=== PATIENT | male | born 1985 | race Caucasian/White ===

== ENCOUNTER 2016-05-16 16:13 | Emergency (ER) | payer SELFPAY ==
[~2016-05-16] VITALS: Ht 175.3 cm; Wt 113.4 kg
[~2016-05-16 16:13] MED LIST: ACET-2267 PO; ACHD5005 PO; ALPR2TAB; ALPR2TAB2; ALPR2TAB2 PO; AZIT500T PO; BENZ100C8 PO; CLIN150C17 PO; CLIN300C11 PO; CLON1TAB36 PO; CYCL5TAB11; DICY20TA57 PO; DOXY100T61 PO; FAMO20TA5 PO; HDR4T PO; HYDR-3812 PO; HYDR1TAB PO; HYDR25CA5 PO; HYDR8TAB24; IBP800T PO; IBUP200C11 PO; METO10TA3 PO; NAPR500T3 PO; ONDA4TAB8 PO; ONDA8TAB13 PO; OXYC-12; OXYC-12 PO; OXYC30TA22; OXYC30TA22 PO; PRD10T PO; PRD20T; PREG75CA PO; SRTR100T; SRTR100T PO; fentanyl patch
--- NOTE | 2016-05-16 16:26 | ED EENT ---
History of Present Illness General Stated Complaint: EAR PAIN Source: patient Exam Limitations: no limitations History of Present Illness Time seen by provider: 16:22 Initial Comments To ER with difficulty hearing and itchy ears bilaterally. This began a few days ago when he was started on antibiotic. He reported some improvement but then worsening again this morning. No fevers or chills. Timing/Duration: gradual Severity: moderate Location: ear (R), ear (L) Associated Symptoms: denies symptoms Allergies and Home Medications Allergies Coded Allergies: Penicillins (Unverified Allergy, Severe, HIVES, 08/22/08) Home Medications Acetaminophen 500 Mg Tablet 1,000 MG PO Q6H PRN PRN PAIN (Reported) TAKES 2 (500MG) TABLETS Clindamycin HCl 150 Mg Capsule 10Days 300 MG PO QID (Reported) #80 FILLED 02-05-15 Hydrocodone/Acetaminophen 1 Each Tablet #30 1 TAB PO Q4H PRN PRN PAIN Prescribed by: MASOUD BENAVIDEZ on 02/08/15 111 Naproxen 500 Mg Tablet #20 500 MG PO BID Prescribed by: MASOUD BENAVIDEZ on 02/08/15 1114 Review of Systems Constitutional: see HPI Eyes: No Symptoms Reported Ears: See HPIDenies Dizziness, PainDenies Tinnitus, Denies Bloody Discharge, Denies Clear Discharge, Denies Purulent Discharge Nose: no symptoms reported Mouth: no symptoms reported Throat: no symptoms reported Respiratory: no symptoms reported Cardiovascular: no symptoms reported Musculoskeletal: no symptoms reported Neurological: No Symptoms Reported Hematologic/Lymphatic: No Symptoms Reported Past Bxirwqc-Rvwyvw-Kuinmt Hx Patient Social History Former Smoker/When Quit: Recent Foreign Travel: No Contact w/Someone Who Travel: No Immunizations Up To Date Tetanus Booster (TDap): More than 5yrs Surgeries HX Surgeries: Yes (LEFT ACL REPAIR X 2, LEFT 5TH TOE SURGERY, MULTIPLE I&D'S OF ABSCESSES.) Surgeries: Adenoidectomy, Appendectomy, Ear Surgery, Orthopedic, Tonsillectomy Respiratory Hx Respiratory Disorders: No Cardiovascular Hx Cardiac Disorders: Yes Neurological Hx Neurological Disorders: Yes Reproductive System Hx Reproductive Disorders: No Genitourinary Hx Genitourinary Disorders: No Gastrointestinal Hx Gastrointestinal Disorders: No Gastrointestinal Disorders: Chronic Constipation, Chronic Diarrhea Musculoskeletal Hx 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 ) Endocrine Hx Endocrine Disorders: No HEENT HX ENT Disorders: No Loss of Vision: Denies Hearing Impairment: Denies Cancer Hx Cancer: No Psychosocial Hx Psychiatric Problems: Yes (SUICIDAL THOUGHTS/GESTURES IN PAST--"CUTTER") Behavioral Health Disorders: Anxiety, Suicide Attempts, Bipolar, Depression Integumentary HX Skin/Integumentary Disorder: Yes (MRSA ABSCESSES) Blood Transfusions Hx Blood Disorders: No Family Medical History Significant Family History: Heart Disease Physical Exam General Appearance: WD/WN no apparent distress Eyes: bilateral eye EOMI, bilateral eye PERRL, bilateral eye normal inspection Ears: bilateral ear auricle normal, bilateral ear canal normal, bilateral ear other (tympanic membrane unable to be visualized on either side due to cerumen impaction) Mouth/Throat: normal mouth inspection pharynx normal Neck: non-tender full range of motion Respiratory: no respiratory distress no accessory muscle use Gastrointestinal: normal bowel sounds non tender soft Neurologic/Psychiatric: alert normal mood/affect oriented x 3 Skin: normal color warm/dry Laceration Repair : Suture Size: 4-0 Departure Impression Impression: Primary Impression: Impacted cerumen of both ears Disposition: 01 HOME, SELF-CARE Condition: Stable Departure-Patient Inst. Decision time for Depature: 16:23 Referrals: NO,LOCAL PHYSICIAN (PCP) Primary Care Physician ANNE-MARIE CHATTERJEE MD Patient Instructions: Ear Wax Impaction (DC) Add. Discharge Instructions: 1. Return to ER for any concerns 2. Follow-up with your doctor next week or Dr. Chatterjee 3. Use mineral oil 4 drops to each ear. You can buy this at [employer] or [place]. Lay on your left side and put 4 drops in the right ear and lay in that position for 15 minutes. Then lay on your right side and put 4 drops in the left ear and remained in that position for 15 minutes. PINA MEDINA APRN May 16, 2016 16:26
[2016-05-16 16:34] VITALS: BP 142/92
== END 2016-05-16 16:34 | disposition home or self-care (01) ==
LOC: EDUNIT# 16:13 → ER 16:15
DX: H61.21 Impacted cerumen, right ear (principal); H61.22 Impacted cerumen, left ear
CPT/HCPCS: 99282

== ENCOUNTER 2016-10-17 17:10 | Emergency (ER) | payer SELFPAY ==
[~2016-10-17] VITALS: Ht 172.7 cm; Wt 113.4 kg
[2016-10-17] MEDS ORDERED: CLON1TAB3 PO (17:48)
[2016-10-17] MEDS ORDERED: SERT100T PO (17:48)
[2016-10-17] MEDS ORDERED: PANT40TA2 PO (17:48)
[2016-10-17] MEDS ORDERED: NS IV 1000 ML 1,000 ML IV ONE (18:36)
--- NOTE | 2016-10-17 18:36 | ED Abdominal Pain ---
General Chief Complaint: Abdominal/GI Problems Stated Complaint: RUQ ABD PAIN Nursing Triage Note: Pt c/o RUQ abd pain that started 2 days ago. Pt also c/o swelling in bilat armpits and lymph nodes under neck. Pt also c/o nausea and vomiting and states he has been more tired than normal. Sepsis Screen: No Definite Risk Source of Information: Patient, RN Notes Reviewed Exam Limitations: No Limitations History of Present Illness Time Seen By Provider: 18:29 Initial Comments Patient presents c/ c/o RUQ abdominal pain for the last 2 days that has steadily gotten worse. Currently rates it a 7/10, sharp, and constant. (+) radiation toward right scapula. (+) nausea and fatigue. Has had similar spells in past but they never lasted this long or got this bad. Not aware of any fever. No diarrhea, or constipation. Denies any symptoms either. Is currently on Protonix. Timing/Duration: 1-2 Days Severity/Quality: Moderate (7/10), Sharp Location: RUQ Radiation: Back (right scapula area) Activities at Onset: None Modifying Factors: Improves With Other (nothing ) Associated Symptoms: Denies Symptoms Allergies and Home Medications Allergies Coded Allergies: Penicillins (Unverified Allergy, Severe, HIVES, 08/22/08) Home Medications Clonazepam 1 Mg Tablet, 1 MG PO BID PRN for ANXIETY, (Reported) Ondansetron HCl 4 Mg Tab, 4 MG PO Q6H PRN for NAUSEA/VOMITING, #10 Ref 0 Prescribed by: DANIEL WHEELER on 10/17/161954 Pantoprazole Sodium Unknown Strength Tablet.dr, Unknown Dose PO DAILY, (Reported ) Sertraline HCl 100 Mg Tablet, 100 MG PO HS, (Reported) Sucralfate 1 Gm Tablet, 1 GM PO ACHS for 15 Days, #60 Ref 0 Prescribed by: DANIEL WHEELER on 10/17/161954 Tramadol HCl 50 Mg Tablet, 50-100 MG PO Q6H PRN for ABDOMINAL PAIN, #20 Ref 0 Prescribed by: DANIEL WHEELER on 10/17/161954 Review of Systems Constitutional: see HPI Gastrointestinal: See HPI, Abdominal Pain, Nausea All Other Systems Reviewed Negative Unless Noted: Yes (Negative excepted noted.) Past Fslamjs-Btwydd-Pqzpqp Hx Patient Social History Alcohol Use: Rarely Uses Recreational Drug Use: No Smoking Status: Former Smoker Recent Foreign Travel: No Contact w/Someone Who Travel: No Recent Infectious Disease Expo: No Recent Hopitalizations: No Immunizations Up To Date Tetanus Booster (TDap): More than 5yrs Surgeries HX Surgeries: Yes (LEFT ACL REPAIR X 2, LEFT 5TH TOE SURGERY, MULTIPLE I&D'S OF ABSCESSES.) Surgeries: Adenoidectomy, Appendectomy, Ear Surgery, Orthopedic, Tonsillectomy Respiratory Hx Respiratory Disorders: No Cardiovascular Hx Cardiac Disorders: Yes Neurological Hx Neurological Disorders: Yes Reproductive System Hx Reproductive Disorders: No Genitourinary Hx Genitourinary Disorders: No Gastrointestinal Hx Gastrointestinal Disorders: No Gastrointestinal Disorders: Chronic Constipation, Chronic Diarrhea Musculoskeletal Hx 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 ) Endocrine Hx Endocrine Disorders: No HEENT HX ENT Disorders: No Loss of Vision: Denies Hearing Impairment: Denies Cancer Hx Cancer: No Psychosocial Hx Psychiatric Problems: Yes (SUICIDAL THOUGHTS/GESTURES IN PAST--"CUTTER") Behavioral Health Disorders: Anxiety, Suicide Attempts, Bipolar, Depression Integumentary HX Skin/Integumentary Disorder: Yes (MRSA ABSCESSES) Blood Transfusions Hx Blood Disorders: No Family Medical History Significant Family History: Heart Disease Physical Exam Vital Signs VS - Last 72 Hours, by Label 10/17/16 10/17/16 17:44 20:04 Temp 98.0 Pulse 122 78 Resp 18 18 B/P (MAP) 136/97 Pulse Ox 96 98 O2 Delivery Room Air Room Air Capillary Refill : Less Than 3 Seconds General Appearance: WD/WN, moderate distress, obese HEENT: normal ENT inspection Neck: normal inspection Respiratory: no respiratory distress Cardiovascular: tachycardia Gastrointestinal: guarding (RUQ), No rebound, tenderness (RUQ) Rectal: deferred Back: no CVA tenderness Neurologic/Psychiatric: no motor/sensory deficits, alert, oriented x 3 Skin: warm/dry, No rash Laceration Repair : Suture Size: 4-0 Progress/Results/Core Measures Results/Orders Lab Results Laboratory Tests Test 10/17/16 19:00 Range/Units White Blood Count 8.1 4.3-11.0 10^3/uL Red Blood Count 4.79 4.35-5.85 10^6/uL Hemoglobin 14.5 13.3-17.7 G/DL Hematocrit 41 40-54 % Mean Corpuscular Volume 86 80-99 FL Mean Corpuscular Hemoglobin 30 25-34 PG Mean Corpuscular Hemoglobin Concent 35 32-36 G/DL Red Cell Distribution Width 12.7 10.0-14.5 % Platelet Count 210 130-400 10^3/uL Mean Platelet Volume 9.5 7.4-10.4 FL Neutrophils (%) (Auto) 65 42-75 % Lymphocytes (%) (Auto) 23 12-44 % Monocytes (%) (Auto) 8 0-12 % Eosinophils (%) (Auto) 3 0-10 % Basophils (%) (Auto) 0 0-10 % Neutrophils # (Auto) 5.3 1.8-7.8 X 10^3 Lymphocytes # (Auto) 1.9 1.0-4.0 X 10^3 Monocytes # (Auto) 0.7 0.0-1.0 X 10^3 Eosinophils # (Auto) 0.3 0.0-0.3 10^3/uL Basophils # (Auto) 0.0 0.0-0.1 10^3/uL Sodium Level 138 135-145 MMOL/L Potassium Level 3.9 3.6-5.0 MMOL/L Chloride Level 103 98-107 MMOL/L Carbon Dioxide Level 24 21-32 MMOL/L Anion Gap 11 5-14 MMOL/L Blood Urea Nitrogen 13 7-18 MG/DL Creatinine 0.74 0.60-1.30 MG/DL Estimat Glomerular Filtration Rate > 60 BUN/Creatinine Ratio 18 0-20 Glucose Level 96 70-105 MG/DL Calcium Level 8.7 8.5-10.1 MG/DL Total Bilirubin 0.9 0.1-1.0 MG/DL Aspartate Amino Transf (AST/SGOT) 42 H 5-34 U/L Alanine Aminotransferase (ALT/SGPT) 61 H 0-55 U/L Alkaline Phosphatase 79 40-136 U/L Total Protein 7.2 6.4-8.2 GM/DL Albumin 4.2 3.2-4.5 GM/DL Lipase 15 8-78 U/L My Orders Orders - DANIEL WHEELER DO Saline Lock/Iv-Start (10/17/16 18:33) Cbc With Automated Diff (10/17/16 18:33) Comprehensive Metabolic Panel (10/17/16 18:33) Lipase (10/17/16 18:33) Ct Abdomen/Pelvis W (10/17/16 18:33) Ketorolac Injection (Toradol Injection) (10/17/16 18:45) Ondansetron Injection (Zofran Injectio (10/17/16 18:45) Famotidine Injection (Pepcid Injection) (10/17/16 18:45) Ns Iv 1000 Ml (Sodium Chloride 0.9%) (10/17/16 18:36) Iohexol Injection (Omnipaque 350 Mg/Ml 1 (10/17/16 18:45) Ns (Ivpb) (Sodium Chloride 0.9% Ivpb Bag (10/17/16 18:45) Fentanyl Injection (Sublimaze Injection (10/17/16 20:00) Medications Given in ED Current Medications Medications Dose Ordered Sig/Debbi Route Start Time Stop Time Status Last Admin Dose Admin Famotidine 20 mg ONCE ONCE IVP 10/17/16 18:45 10/17/16 18:46 DC 10/17/16 18:56 20 MG Fentanyl Citrate 100 mcg ONCE ONCE IVP 10/17/16 20:00 10/17/16 20:00 DC 10/17/16 19:55 100 MCG Iohexol 100 ml ONCE ONCE IV 10/17/16 18:45 10/17/16 18:46 DC 10/17/16 19:10 100 ML Ketorolac Tromethamine 30 mg ONCE ONCE IVP 10/17/16 18:45 10/17/16 18:46 DC 10/17/16 18:57 30 MG Ondansetron HCl 4 mg ONCE ONCE IVP 10/17/16 18:45 10/17/16 18:46 DC 10/17/16 18:57 4 MG Sodium Chloride 100 ml ONCE ONCE IV 10/17/16 18:45 10/17/16 18:46 DC 10/17/16 19:10 80 ML Sodium Chloride 1,000 ml @ 0 mls/hr Q0M ONCE IV 10/17/16 18:36 10/17/16 18:38 DC 10/17/16 18:57 0 MLS/HR Vital Signs/I&O Vital Sign - Last 12Hours 10/17/16 10/17/16 17:44 20:04 Temp 98.0 Pulse 122 78 Resp 18 18 B/P (MAP) 136/97 Pulse Ox 96 98 O2 Delivery Room Air Room Air Intake and Output 10/18/16 00:00 Intake Total 1000 ml Balance 1000 ml Blood Pressure Mean: 110 Progress Note : Progress Note Improved p/ meds and fluids Diagnostic Imaging Diagonstic Imaging: CT Plain Films/CT/US/NM/MRI: abdomen, pelvis (nothing acute) Departure Impression Impression: Primary Impression: RUQ abdominal pain Disposition: 01 HOME, SELF-CARE Condition: Improved Departure-Patient Inst. Decision time for Depature: 19:51 Referrals: CARLOS GODWIN MD (PCP/Family) Primary Care Physician Patient Instructions: Gastritis (DC), Acute Abdomen (Belly Pain), Adult (DC) Add. Discharge Instructions: All discharge instructions reviewed with patient and/or family. Voiced understanding. IF SYMPTOMS CONTINUE, OR FAIL TO IMPROVE, NEED TO FOLLOW UP WITH YOUR PCP TO OBTAIN A REFERRAL FOR AN EGD (SCOPE OF YOUR STOMACH), &/OR A HEPATOBILIARY SCAN OF YOUR GALLBLADDER. DOUBLE UP ON YOUR PROTINIX FOR THE NEXT 2 WEEKS DISCUSSED. Scripts Ondansetron HCl (Zofran) 4 Mg Tab 4 MG PO Q6H Y for NAUSEA/VOMITING, #10 TAB 0 Refills Prov: DANIEL WHEELER DO 10/17/16 Tramadol HCl (Tramadol HCl) 50 Mg Tablet 50-100 MG PO Q6H Y for ABDOMINAL PAIN, #20 TAB 0 Refills Prov: DANIEL WHEELER DO 10/17/16 Sucralfate (Carafate) 1 Gm Tablet 1 GM PO ACHS for 15 Days, #60 TAB 0 Refills Prov: DANIEL WHEELER DO 10/17/16 DANIEL WHEELER DO Oct 17, 2016 18:36
[2016-10-17] MEDS ORDERED: ONDANSETRON 4 MG/2 ML (SDV) Z0FRAN IVP ONE (18:45)
[2016-10-17] MEDS ORDERED: KETOROLAC 30 MG/ML VIAL IVP ONE (18:45)
[2016-10-17] MEDS ORDERED: IOHEXOL 350 MG/ML 100 ML (OMNIPAQUE 350) VIAL IV ONE (18:45)
[2016-10-17] MEDS ORDERED: NS 100 ML (IVPB) BAG IV ONE (18:45)
[2016-10-17] MEDS ORDERED: FAMOTIDINE 20MG/2ML IV (PEPCID) IVP ONE (18:45)
[2016-10-17 19:12] LABS: BASOPHILS % (AUTO) 0 % (0-10); EOSINOPHILS # (AUTO) 0.3 10^3/uL (0.0-0.3); EOSINOPHILS % (AUTO) 3 % (0-10); LYMPHOCYTES # (AUTO) 1.9 X 10^3 (1.0-4.0); LYMPHOCYTES % (AUTO) 23 % (12-44); MEAN CORPUSCULAR HEMOGLOBIN 30 PG (25-34); MEAN CORPUSCULAR HGB CONC 35 G/DL (32-36); MEAN CORPUSCULAR VOLUME 86 FL (80-99); MEAN PLATELET VOLUME 9.5 FL (7.4-10.4); MONOCYTES # (AUTO) 0.7 X 10^3 (0.0-1.0); MONOCYTES % (AUTO) 8 % (0-12); NEUTROPHILS # (AUTO) 5.3 X 10^3 (1.8-7.8); NEUTROPHILS % (AUTO) 65 % (42-75); PLATELET COUNT 210 10^3/uL (130-400); RED BLOOD COUNT 4.79 10^6/uL (4.35-5.85); RED CELL DISTRIBUTION WIDTH 12.7 % (10.0-14.5); WHITE BLOOD COUNT 8.1 10^3/uL (4.3-11.0)
[2016-10-17 19:35] LABS: ALANINE AMINOTRANSFERASE 61 U/L (0-55); ALBUMIN 4.2 GM/DL (3.2-4.5); ANION GAP 11 MMOL/L (5-14); ASPARTATE AMINO TRANSFERASE 42 U/L (5-34); BILIRUBIN,TOTAL 0.9 MG/DL (0.1-1.0); BLOOD UREA NITROGEN 13 MG/DL (7-18); BUN/CREATININE RATIO 18 (0-20); CALCIUM 8.7 MG/DL (8.5-10.1); CARBON DIOXIDE 24 MMOL/L (21-32); CHLORIDE 103 MMOL/L (98-107); CREATININE SERUM 0.74 MG/DL (0.60-1.30); GFR ESTIMATED > 60; GLUCOSE 96 MG/DL (70-105); HEMOLYSIS 16 (0-29); ICTERUS 0.7 (0-1.9); LIPASE 15 U/L (8-78); LIPEMIA 8 (0-49); POTASSIUM 3.9 MMOL/L (3.6-5.0); SODIUM 138 MMOL/L (135-145); TOTAL PROTEIN 7.2 GM/DL (6.4-8.2)
--- NOTE | 2016-10-17 19:40 | Diagnostic Imaging Report ---
PROCEDURE: CT abdomen and pelvis with contrast. TECHNIQUE: Multiple contiguous axial images were obtained through the abdomen and pelvis after administration of intravenous contrast. INDICATION: Abdominal pain and palpable abnormality in the lower right rib cage area. Patient does report nausea, emesis with cold sweats and fever. Comparison is made to the study of 09/13/2013. FINDINGS: There is extensive low density throughout the liver indicating steatosis with probable sparing adjacent to the gallbladder fossa. No gallbladder, pancreatic or splenic lesion is detected. There may be small hiatal hernia. No pancreatic abnormality or adrenal gland lesion is seen. Kidneys are unremarkable. There is no free fluid in the abdomen or pelvis. There is no evidence of bowel obstruction. No localized inflammation is seen. Appendix is not visualized and may be surgically absent. There is no evidence of chest or abdominal wall mass. No herniation is seen. IMPRESSION: Hepatic steatosis without acute abnormality seen in the abdomen or pelvis. Dictated by: Dictated on workstation # [id number]
[2016-10-17] MEDS ORDERED: SUCR1TAB36 PO (19:55)
[2016-10-17] MEDS ORDERED: ONDN4T PO (19:55)
[2016-10-17] MEDS ORDERED: TRAM50TA2 PO (19:55)
[2016-10-17] MEDS ORDERED: fentaNYL INJECTION 100 MCG/2 ML AMP IVP ONE (20:00)
[2016-10-17 20:04] VITALS: BP 138/77
== END 2016-10-17 20:00 | disposition home or self-care (01) ==
LOC: EDUNIT# 17:10 → ER 17:13
DX: R10.11 Right upper quadrant pain (principal); K59.09 Other constipation; Z98.890 Other specified postprocedural states; Z87.891 Personal history of nicotine dependence
CPT/HCPCS: 36415; 74177; 80053; 83690; 85025

== ENCOUNTER 2017-01-17 17:22 | Emergency (ER) | payer SELFPAY ==
[~2017-01-17] VITALS: Ht 172.7 cm; Wt 127.0 kg
[~2017-01-17 17:22] MED LIST changes: +CLON1TAB3 PO; -NAPR500T3 PO; +NAPR500T4 PO; +ONDN4T PO; +PANT40TA2 PO; +SERT100T PO; +SUCR1TAB36 PO; +TRAM50TA2 PO
--- NOTE | 2017-01-17 18:26 | ED Lower Extremity ---
General Chief Complaint: Lower Extremity Stated Complaint: BILAT KNEE PAIN/SWELLING Nursing Triage Note: STATES HE WAS IN [place] 1.5 WEEKS AGO ET COMPLAINTS OF BILAT KNEE PAIN. STATES IF HE WALKS HIS LEGS GO OUT UNDERNEATH HIM. PT REPORTS TAKING TYLENOL 2000MG PO QID X2 DAYS. Nursing Sepsis Screen: No Definite Risk Source: patient Exam Limitations: no limitations History of Present Illness Time seen by provider: 18:05 Initial Comments Patient presents to ER by private conveyance with a chief complaint that a week ago he was hiking a [address] and [place] and started having quite a bit of pain in both of his knees and was unable to stand or walk on them very easily. He felt his right knee give out laterally in his left knee give out medially. He has a history of 2 anterior cruciate ligament tears in the left knee that were taken care of by Dr. gretchen Huntley and Dr. Rojas. He says the repairs were almost 10 years ago. 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 He has been icing his knees every night. He does not have a primary care physician at this time however he was seen in the past at [facility]. He has not contacted his orthopedic surgeon. He is not taking any Motrin. He does not have any brace. There is no trauma to his knees. Allergies and Home Medications Allergies Coded Allergies: Penicillins (Unverified Allergy, Severe, HIVES, 08/22/08) Home Medications Clonazepam 1 Mg Tablet, 1 MG PO BID PRN for ANXIETY, (Reported) Sertraline HCl 100 Mg Tablet, 100 MG PO HS, (Reported) Constitutional: No chills, No diaphoresis EENTM: No ear pain, No double vision Respiratory: No cough, No short of breath Cardiovascular: No chest pain, No palpitations Gastrointestinal: No constipation, No nausea Genitourinary: No discharge, No dysuria Musculoskeletal: see HPI, No back pain, joint pain Skin: No pruritus, No rash Psychiatric/Neurological: Denies Headache, Denies Numbness, Denies Paresthesia Past Hpnmzqn-Hykpui-Wdrbxe Hx Patient Social History Alcohol Use: Rarely Uses Recreational Drug Use: Yes (POT WHILE IN [place]) Smoking Status: Current Everyday Smoker Former Smoker, Quit: September 26, 2016 Recent Foreign Travel: No Contact w/Someone Who Travel: No Recent Infectious Disease Expo: No Recent Hopitalizations: No Immunizations Up To Date Tetanus Booster (TDap): More than 5yrs Surgeries History of Surgeries: Yes (LEFT ACL REPAIR X 2, LEFT 5TH TOE SURGERY, MULTIPLE I&D'S OF ABSCESSES.) Surgeries: Adenoidectomy, Appendectomy, Ear Surgery, Orthopedic, Tonsillectomy Respiratory History of Respiratory Disorde: No Currently Using CPAP: No Currently Using BIPAP: No Cardiovascular History of Cardiac Disorders: No Neurological History of Neurological Disord: No Reproductive System Hx Reproductive Disorders: No Genitourinary History of Genitourinary Disor: No Gastrointestinal History of Gastrointestinal Di: Yes Gastrointestinal Disorders: Chronic Constipation, Chronic Diarrhea Musculoskeletal 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 ) Endocrine History of Endocrine Disorders: No HEENT History of HEENT Disorders: No Loss of Vision: Denies Hearing Impairment: Denies Cancer History of Cancer: No Psychosocial History of Psychiatric Problem: Yes (SUICIDAL THOUGHTS/GESTURES IN PAST-- "CUTTER") Behavioral Health Disorders: Anxiety, Suicide Attempts, Bipolar, Depression Integumentary History of Skin or Integumenta: Yes (MRSA ABSCESSES) Blood Transfusions History of Blood Disorders: No Family Medical History Significant Family History: Heart Disease Physical Exam Vital Signs Vital Sign - Last 12Hours 01/17/17 17:35 Temp 98.0 Pulse 118 Resp 18 B/P (MAP) 158/121 Pulse Ox 98 Capillary Refill : Less Than 3 Seconds General Appearance: WD/WN, no apparent distress HEENT: PERRL/EOMI, pharynx normal Neck: non-tender, normal inspection Cardiovascular: regular rate, rhythm, no edema Respiratory: chest non-tender, lungs clear, normal breath sounds Gastrointestinal: non tender, soft Hips: bilateral hip non-tender, bilateral hip normal inspection, bilateral hip normal range of motion, bilateral hip no evidence of injury Legs: bilateral leg non-tender, bilateral leg normal inspection, bilateral leg normal range of motion, bilateral leg no evidence of injury Knees: bilateral knee bone tenderness, bilateral knee joint effusion, bilateral knee pain, bilateral knee soft tissue tenderness, bilateral knee swelling, bilateral knee other (full active/passive range of motion and his knee exam is limited based on everything being tender.) Ankles: bilateral ankle non-tender, bilateral ankle normal inspection, bilateral ankle normal range of motion, bilateral ankle no evidence of injury Neurologic/Tendon: normal sensation, normal motor functions Neurologic/Psychiatric: alert, oriented x 3 Skin: normal color, warm/dry Laceration Repair : Suture Size: 4-0 Progress/Results/Core Measures Results/Orders Vital Signs/I&O Vital Sign - Last 12Hours 01/17/17 17:35 Temp 98.0 Pulse 118 Resp 18 B/P (MAP) 158/121 Pulse Ox 98 Blood Pressure Mean: 133 Departure Impression Impression: Primary Impression: Acute bilateral knee pain Disposition: HOME, SELF-CARE Condition: Stable Departure-Patient Inst. Decision time for Depature: 18:24 Referrals: NO,LOCAL PHYSICIAN (PCP/Family) Primary Care Physician Patient Instructions: Knee Sprain (DC) Add. Discharge Instructions: Obtain to neoprene knee sleeves or use Willy bandages to lightly compressed her knees. Keep them elevated above the level of your heart when possible and limit your activities. Apply ice for 20 minutes every 4-6 hours to keep the swelling and pain down. Take ibuprofen 800 mg by mouth every 8 hours scheduled. Use Tylenol 1000 mg every 8 hours by mouth as needed for breakthrough pain. Take 2 tablets of prednisone twice a day for the next 5 days. Established a primary care physician as needed. Call Drs. Rojas's office next to establish an appointment at [phone]. All discharge instructions reviewed with patient and/or family. Voiced understanding. Scripts Prednisone (Prednisone) 20 Mg Tab 40 MG PO BID for 5 Days, #20 TAB 0 Refills Prov: STEVEN ANNE 01/17/17 Work/School Note: Work Release Form Date Seen in the Emergency Department: Jan 17, 2017 Return to Work: Jan 21, 2017 Restrictions: No Restrictions Copy Copies To 1: ANNE-MARIE ROJAS MD, TITUS J Jan 17, 2017 18:26
[2017-01-17] MEDS ORDERED: PRD20T PO (18:27)
[2017-01-17 18:31] VITALS: BP 107/75
[2017-04-03] MEDS ORDERED: PANT40TA2 PO (02:42)
[2017-04-03] MEDS ORDERED: ONDA4TAB8 PO (02:42)
== END 2017-01-17 18:31 | disposition home or self-care (01) ==
LOC: EDUNIT# 17:22 → ER 17:25
DX: M25.561 Pain in right knee (principal); M25.562 Pain in left knee; F41.9 Anxiety disorder, unspecified; F31.9 Bipolar disorder, unspecified; F12.10 Cannabis abuse, uncomplicated; Z86.19 Personal history of other infectious and parasitic diseases; Z87.891 Personal history of nicotine dependence; Z91.5 Personal history of self-harm; Z90.49 Acquired absence of other specified parts of digestive tract; Z90.89 Acquired absence of other organs; Z87.19 Personal history of other diseases of the digestive system; X50.3XXA Overexertion from repetitive movements, initial encounter; Y93.01 Activity, walking, marching and hiking
CPT/HCPCS: 99282

== ENCOUNTER 2017-04-01 21:38 | Emergency (ER) | payer SELFPAY ==
[~2017-04-01] VITALS: Ht 172.7 cm; Wt 117.9 kg
[~2017-04-01 21:38] MED LIST changes: +PRD20T PO
--- OUTSIDE RECORDS SUMMARY | 2017-04-01 21:44 | XMS REPORT ---
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 98623729 Problem Chronic prescription benzodiazepine use Z79.899 Active 955319047 Problem Anxiety F41.9 Active 53547623 Problem PTSD (post-traumatic stress disorder) F43.10 Active 28729805 Problem ADHD (attention deficit hyperactivity disorder), combined type F90.2 Active 68545410 Problem Chronic pain syndrome G89.4 Active 438910653 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 Z79.891 Active 732250097 Problem Social anxiety disorder F40.10 Active 72885453 Problem Depressive disorder, not elsewhere classified F32.9 Active 71335672 ALLERGIES No Information SOCIAL HISTORY Never Assessed PLAN OF CARE VITAL SIGNS MEDICATIONS Unknown Medications RESULTS No Results PROCEDURES No Known procedures IMMUNIZATIONS No Known Immunizations MEDICAL (GENERAL) HISTORY Type Description Date Medical History Bronchitis in the past Medical History ahmet-danlos syndrome Medical History social anxiety disorder Medical History panic disorder Medical History Broken Left Shoulder bone w/o repair Surgical History ACL Surgery 07/2004 Surgical History ACL Replacement 09/2010 Hospitalization History IV abx for tooth infection
--- NOTE | 2017-04-01 21:51 | ED Abdominal Pain ---
General Stated Complaint: RT SIDED ABD PAIN,NAUSEA Source of Information: Patient, Family Exam Limitations: No Limitations History of Present Illness Time Seen By Provider: 21:48 Initial Comments 2 ER with reports of right-sided abdominal pain that began this evening after dinner. This is a gravely for dinner this evening. He does have associated nausea. He has his appendix, this was years ago. No fevers or chills. He's never had this pain before. Stools this morning were very loose Timing/Duration: 1-3 Hours Severity/Quality: Severe Location: RUQ Radiation: No Radiation Activities at Onset: None Allergies and Home Medications Allergies Coded Allergies: Penicillins (Unverified Allergy, Severe, HIVES, 08/22/08) Home Medications Clonazepam 1 Mg Tablet, 1 MG PO BID PRN for ANXIETY, (Reported) Prednisone 20 Mg Tab, 40 MG PO BID for 5 Days, #20 Ref 0 Prescribed by: STEVEN ANNE on 01/17/17 182 Sertraline HCl 100 Mg Tablet, 100 MG PO HS, (Reported) Review of Systems Constitutional: see HPI, No chills, No fever EENTM: No Symptoms Reported Respiratory: No Symptoms Reported Cardiovascular: No Symptoms Reported Gastrointestinal: See HPI, Abdominal Pain, Denies Constipated, Denies Diarrhea , Nausea, Denies Vomiting Genitourinary: No Symptoms Reported Musculoskeletal: no symptoms reported Skin: no symptoms reported Psychiatric/Neurological: No Symptoms Reported Endocrine: No Symptoms Reported Past [place]-Julrfv-Tvtybh Hx Patient Social History Former Smoker, Quit: September 26, 2016 Recent Foreign Travel: No Contact w/Someone Who Travel: No Recent Hopitalizations: No Immunizations Up To Date Tetanus Booster (TDap): More than 5yrs Surgeries History of Surgeries: Yes (LEFT ACL REPAIR X 2, LEFT 5TH TOE SURGERY, MULTIPLE I&D'S OF ABSCESSES.) Surgeries: Adenoidectomy, Appendectomy, Ear Surgery, Orthopedic, Tonsillectomy Respiratory History of Respiratory Disorde: No Currently Using CPAP: No Currently Using BIPAP: No Cardiovascular History of Cardiac Disorders: No Neurological History of Neurological Disord: No Reproductive System Hx Reproductive Disorders: No Genitourinary History of Genitourinary Disor: No Gastrointestinal History of Gastrointestinal Di: Yes Gastrointestinal Disorders: Chronic Constipation, Chronic Diarrhea Musculoskeletal 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 ) Endocrine History of Endocrine Disorders: No HEENT History of HEENT Disorders: No Loss of Vision: Denies Hearing Impairment: Denies Cancer History of Cancer: No Psychosocial History of Psychiatric Problem: Yes (SUICIDAL THOUGHTS/GESTURES IN PAST-- "CUTTER") Behavioral Health Disorders: Anxiety, Suicide Attempts, Bipolar, Depression Integumentary History of Skin or Integumenta: Yes (MRSA ABSCESSES) Blood Transfusions History of Blood Disorders: No Family Medical History Significant Family History: Heart Disease Physical Exam Vital Signs VS - Last 72 Hours, by Label 04/01/17 21:40 Temp 97.6 Pulse 143 Resp 24 B/P (MAP) 148/113 Pulse Ox 96 O2 Delivery Room Air Capillary Refill : General Appearance: WD/WN, no apparent distress HEENT: PERRL/EOMI, normal ENT inspection Respiratory: normal breath sounds, no respiratory distress, no accessory muscle use Cardiovascular: no murmur, tachycardia Gastrointestinal: normal bowel sounds, soft, No distended, No guarding, tenderness Extremities: normal range of motion, non-tender Neurologic/Psychiatric: alert, normal mood/affect, oriented x 3 Skin: normal color, warm/dry Laceration Repair : Suture Size: 4-0 Progress/Results/Core Measures Results/Orders Lab Results Laboratory Tests Test 04/01/17 21:45 04/01/17 22:20 Range/Units White Blood Count 13.8 H 4.3-11.0 10^3/uL Red Blood Count 5.57 4.35-5.85 10^6/uL Hemoglobin 16.8 13.3-17.7 G/DL Hematocrit 46 40-54 % Mean Corpuscular Volume 82 80-99 FL Mean Corpuscular Hemoglobin 30 25-34 PG Mean Corpuscular Hemoglobin Concent 37 H 32-36 G/DL Red Cell Distribution Width 12.2 10.0-14.5 % Platelet Count 235 130-400 10^3/uL Mean Platelet Volume 10.0 7.4-10.4 FL Neutrophils (%) (Auto) 60 42-75 % Lymphocytes (%) (Auto) 26 12-44 % Monocytes (%) (Auto) 11 0-12 % Eosinophils (%) (Auto) 3 0-10 % Basophils (%) (Auto) 0 0-10 % Neutrophils # (Auto) 8.3 H 1.8-7.8 X 10^3 Lymphocytes # (Auto) 3.6 1.0-4.0 X 10^3 Monocytes # (Auto) 1.5 H 0.0-1.0 X 10^3 Eosinophils # (Auto) 0.4 H 0.0-0.3 10^3/uL Basophils # (Auto) 0.1 0.0-0.1 10^3/uL Sodium Level 143 135-145 MMOL/L Potassium Level 3.7 3.6-5.0 MMOL/L Chloride Level 103 98-107 MMOL/L Carbon Dioxide Level 25 21-32 MMOL/L Anion Gap 15 H 5-14 MMOL/L Blood Urea Nitrogen 9 7-18 MG/DL Creatinine 1.09 0.60-1.30 MG/DL Estimat Glomerular Filtration Rate > 60 BUN/Creatinine Ratio 8 Glucose Level 99 70-105 MG/DL Calcium Level 9.5 8.5-10.1 MG/DL Total Bilirubin 1.2 H 0.1-1.0 MG/DL Aspartate Amino Transf (AST/SGOT) 40 H 5-34 U/L Alanine Aminotransferase (ALT/SGPT) 88 H 0-55 U/L Alkaline Phosphatase 88 40-136 U/L Total Protein 8.2 6.4-8.2 GM/DL Albumin 4.8 H 3.2-4.5 GM/DL Urine Color YELLOW Urine Clarity CLEAR Urine pH 5 5-9 Urine Specific [place] 1.010 L 1.016-1.022 Urine Protein 2+ H NEGATIVE Urine Glucose (UA) NEGATIVE NEGATIVE Urine Ketones NEGATIVE NEGATIVE Urine Nitrite NEGATIVE NEGATIVE Urine Bilirubin NEGATIVE NEGATIVE Urine Urobilinogen NORMAL NORMAL MG/DL Urine Leukocyte Esterase 2+ H NEGATIVE Urine RBC (Auto) 1+ H NEGATIVE Urine RBC 0-2 /HPF Urine WBC 5-10 H /HPF Urine Squamous Epithelial Cells 10-25 H /HPF Urine Crystals NONE /LPF Urine Bacteria TRACE /HPF Urine Casts NONE /LPF Urine Mucus NEGATIVE /LPF Urine Culture Indicated YES My Orders Orders - PINA MEDINA APRN Saline Lock/Iv-Start (04/01/17 21:47) Cbc With Automated Diff (04/01/17 21:47) Comprehensive Metabolic Panel (04/01/17 21:47) Ua Culture If Indicated (04/01/17 21:47) Ondansetron Injection (Zofran Injectio (04/01/17 22:00) Fentanyl Injection (Sublimaze Injection (04/01/17 22:00) Ct Abdomen/Pelvis W (04/01/17 21:47) Ns Iv 1000 Ml (Sodium Chloride 0.9%) (04/01/17 22:15) Ketorolac Injection (Toradol Injection) (04/01/17 22:30) Iohexol Injection (Omnipaque 350 Mg/Ml 1 (04/01/17 22:30) Ns (Ivpb) (Sodium Chloride 0.9% Ivpb Bag (04/01/17 22:30) Rx-Hyoscyamine Tab (Rx-Levsin Sl) (04/01/17 22:22) Urine Culture (04/01/17 22:20) Medications Given in ED Current Medications Medications Dose Ordered Sig/Debbi Route Start Time Stop Time Status Last Admin Dose Admin Fentanyl Citrate 75 mcg ONCE ONCE IVP 04/01/17 22:00 04/01/17 22:01 DC 04/01/17 21:53 75 MCG Iohexol 100 ml ONCE ONCE IV 04/01/17 22:30 04/01/17 22:31 DC 04/01/17 22:21 100 ML Ketorolac Tromethamine 30 mg ONCE ONCE IVP 04/01/17 22:30 04/01/17 22:31 DC 04/01/17 22:24 30 MG Ondansetron HCl 8 mg ONCE ONCE IVP 04/01/17 22:00 04/01/17 22:01 DC 04/01/17 21:53 8 MG Sodium Chloride 100 ml ONCE ONCE IV 04/01/17 22:30 04/01/17 22:31 DC 04/01/17 22:21 80 ML Vital Signs/I&O Vital Sign - Last 12Hours 04/01/17 21:40 Temp 97.6 Pulse 143 Resp 24 B/P (MAP) 148/113 Pulse Ox 96 O2 Delivery Room Air Departure Impression Impression: Primary Impression: Biliary colic Additional Impressions: Nausea and vomiting Urinary tract infection Disposition: 01 HOME, SELF-CARE Condition: Stable Departure-Patient Inst. Decision time for Depature: 22:21 Referrals: ALEJANDRO SIMMONS BRETT D DO JENKINS, XAVIER M MD KIDO, TAKAAKI MD NO,LOCAL PHYSICIAN (PCP) Primary Care Physician Patient Instructions: Acute Abdomen (Belly Pain), Urinary Tract Infection, Adult (DC) Add. Discharge Instructions: 1. Return to ER for any fevers, intolerable pain or worsening symptoms 2. Low fat low dairy product diet in the meantime 3. I suspect that your symptoms are from a gallstone that we are unable to see on CT scan. With this in mind follow-up with one of the surgeons for further evaluation which will likely include a gallbladder ultrasound. Scripts Ciprofloxacin HCl (Cipro) 500 Mg Tablet 500 MG PO BID, #8 TAB Prov: PINA MEDINA APRN 04/01/17 Images Torso/Trunk 1 - Tenderness PINA MEDINA APRN Apr 01, 2017 21:51
[2017-04-01] MEDS ORDERED: ONDANSETRON 4 MG/2 ML (SDV) Z0FRAN IVP ONE (22:00)
[2017-04-01] MEDS ORDERED: fentaNYL INJECTION 100 MCG/2 ML AMP IVP ONE ×2 (22:00→22:45)
[2017-04-01 22:05] LABS: BASOPHILS # (AUTO) 0.1 10^3/uL (0.0-0.1); BASOPHILS % (AUTO) 0 % (0-10); EOSINOPHILS # (AUTO) 0.4 10^3/uL (0.0-0.3); EOSINOPHILS % (AUTO) 3 % (0-10); LYMPHOCYTES # (AUTO) 3.6 X 10^3 (1.0-4.0); LYMPHOCYTES % (AUTO) 26 % (12-44); MEAN CORPUSCULAR HEMOGLOBIN 30 PG (25-34); MEAN CORPUSCULAR HGB CONC 37 G/DL (32-36); MEAN CORPUSCULAR VOLUME 82 FL (80-99); MONOCYTES # (AUTO) 1.5 X 10^3 (0.0-1.0); MONOCYTES % (AUTO) 11 % (0-12); NEUTROPHILS # (AUTO) 8.3 X 10^3 (1.8-7.8); NEUTROPHILS % (AUTO) 60 % (42-75); PLATELET COUNT 235 10^3/uL (130-400); RED BLOOD COUNT 5.57 10^6/uL (4.35-5.85); RED CELL DISTRIBUTION WIDTH 12.2 % (10.0-14.5); WHITE BLOOD COUNT 13.8 10^3/uL (4.3-11.0)
[2017-04-01 22:13] LABS: ALANINE AMINOTRANSFERASE 88 U/L (0-55); ALBUMIN 4.8 GM/DL (3.2-4.5); ANION GAP 15 MMOL/L (5-14); ASPARTATE AMINO TRANSFERASE 40 U/L (5-34); BILIRUBIN,TOTAL 1.2 MG/DL (0.1-1.0); BLOOD UREA NITROGEN 9 MG/DL (7-18); BUN/CREATININE RATIO 8; CALCIUM 9.5 MG/DL (8.5-10.1); CARBON DIOXIDE 25 MMOL/L (21-32); CHLORIDE 103 MMOL/L (98-107); CREATININE SERUM 1.09 MG/DL (0.60-1.30); GFR ESTIMATED > 60; GLUCOSE 99 MG/DL (70-105); POTASSIUM 3.7 MMOL/L (3.6-5.0); SODIUM 143 MMOL/L (135-145); TOTAL PROTEIN 8.2 GM/DL (6.4-8.2)
[2017-04-01] MEDS ORDERED: NS IV 1000 ML 1,000 ML IV SCH (22:15)
[2017-04-01] MEDS ORDERED: RX-HYOSCYAMINE 0.125 MG SL (LEVSIN) PPK#6 SL STA (22:22)
[2017-04-01 22:27] LABS: BILIRUBIN,URINE NEGATIVE (NEGATIVE); KETONES,URINE NEGATIVE (NEGATIVE); LEUKOCYTE ESTERASE ,URINE 2+ (NEGATIVE); NITRITE,URINE NEGATIVE (NEGATIVE); PH,URINE 5 (5-9); PROTEIN,URINE 2+ (NEGATIVE); UROBILINOGEN,URINE NORMAL (NORMAL)
[2017-04-01] MEDS ORDERED: KETOROLAC 30 MG/ML VIAL IVP ONE (22:30)
[2017-04-01] MEDS ORDERED: IOHEXOL 350 MG/ML 100 ML (OMNIPAQUE 350) VIAL IV ONE (22:30)
[2017-04-01] MEDS ORDERED: NS 100 ML (IVPB) BAG IV ONE (22:30)
[2017-04-01] MEDS ORDERED: CIPR-225 PO (22:44)
[2017-04-01] MEDS ORDERED: LEVOFLOXACIN 500 MG TAB (LEVAQUIN) PO ONE (22:45)
[2017-04-01 23:15] VITALS: BP 124/100
--- NOTE | 2017-04-02 06:38 | Diagnostic Imaging Report ---
PROCEDURE: CT abdomen and pelvis with contrast. TECHNIQUE: Multiple contiguous axial images were obtained through the abdomen and pelvis after administration of intravenous contrast. INDICATION: Right lower quadrant pain Comparison: 10/17/2016 Findings: The lung bases are clear. There is diffuse hepatic steatosis. There is some focal sparing around the gallbladder fossa. Portal vein enhances normally. The gallbladder and pancreas unremarkable. There is no biliary dilatation. The spleen, adrenal glands and kidneys appear unremarkable. There is no urinary obstructive change. There is no evidence of bowel obstruction or inflammatory process. There is no free fluid, free air or adenopathy. Abdominal aorta appears normal in caliber. Bladder appears unremarkable. No acute osseous abnormality is demonstrated. Impression: 1. No evidence of an acute abnormality in the abdomen and pelvis. 2. Diffuse hepatic steatosis with some focal sparing around the gallbladder fossa. 3. Status post appendectomy. Agree with [facility] interpretation. Dictated by: Dictated on workstation # [id number]
[2017-04-03] MEDS ORDERED: ONDA4TAB8 PO (02:42)
[2017-04-03] MEDS ORDERED: PANT40TA2 PO (02:42)
== END 2017-04-01 23:15 | disposition home or self-care (01) ==
LOC: EDUNIT# 21:38 → ER 21:40
DX: K80.51 Calculus of bile duct without cholangitis or cholecystitis with obstruction (principal); N39.0 Urinary tract infection, site not specified; F41.9 Anxiety disorder, unspecified; F31.9 Bipolar disorder, unspecified; Z90.49 Acquired absence of other specified parts of digestive tract; Z90.89 Acquired absence of other organs; Z87.19 Personal history of other diseases of the digestive system; Z91.5 Personal history of self-harm; Z86.14 Personal history of Methicillin resistant Staphylococcus aureus infection; Z82.49 Family history of ischemic heart disease and other diseases of the circulatory system
CPT/HCPCS: 36415; 74177; 80053; 81000; 85025; 87088

== ENCOUNTER 2017-04-02 21:46 | Emergency (ER) | payer SELFPAY ==
[~2017-04-02] VITALS: Ht 172.7 cm; Wt 117.9 kg
[~2017-04-02 21:46] MED LIST changes: +CIPR-225 PO
[2017-04-02] MEDS ORDERED: FAMOTIDINE 20MG/2ML IV (PEPCID) IV STA (22:03)
[2017-04-02] MEDS ORDERED: LACTATED RINGERS 1,000 ML IV ONE (22:03)
[2017-04-02] MEDS ORDERED: ONDANSETRON 4 MG/2 ML (SDV) Z0FRAN IVP ONE (22:15)
[2017-04-02] MEDS ORDERED: HYOSCYAMINE 0.125 MG (LEVSIN) TAB SL ONE (22:15)
--- NOTE | 2017-04-02 22:23 | ED Abdominal Pain ---
General Chief Complaint: Abdominal/GI Problems Stated Complaint: RIGHT UPPER ABD PAIN Nursing Triage Note: PATIENT DISCHARGED YESTERDAY. SINCE THEN HAS BEEN VOMITTING. PAIN IS WORSE AND RADIATING INTO BACK. Sepsis Screen: No Definite Risk Source of Information: Patient, Old Records History of Present Illness Time Seen By Provider: 22:02 Initial Comments PT ARRIVES VIA POV C/O SEVERE, SHARP RUQ PAIN THAT RADIATES TO RIGHT FLANK/POSTERIOR RIB AREA SINCE LAST PM--CONSTANT AND SEVERE STATES HE HAS HAD SIMILAR EPISODES OFF AND ON FOR A COUPLE OF YEARS, BUT HAS NEVER SOUGHT CARE UNTIL LAST PM WAS SEEN IN ER LAST PM AND WAS DIAGNOSED WITH BILIARY COLIC AND UTI, AND INSTRUCTIONS TO FOLLOW UP WITH SURGEON. CT SCAN WAS ESSENTIALLY NORMAL. C/O NAUSEA AND VOMITING ALL DAY TODAY STATES HE CANNOT KEEP ANYTHING DOWN, INCLUDING WATER HAD A FEW CRACKERS AT 1400, AND SOME BREAD AT 1700 HAD DIARRHEA X 1 YESTERDAY AM. NO BM SINCE. HAS TO STRAIN TO URINATE, AND THIS CAUSES MUCH PAIN IN RUQ AND RIGHT FLANK AREA NO FEVER PCP: [facility]: [facility] Allergies and Home Medications Allergies Coded Allergies: Penicillins (Unverified Allergy, Severe, HIVES, 08/22/08) Home Medications Ciprofloxacin HCl 500 Mg Tablet, 500 MG PO BID, #8 Prescribed by: PINA MEDINA on 04/01/17 2244 Clonazepam 1 Mg Tablet, 1 MG PO BID PRN for ANXIETY, (Reported) Prednisone 20 Mg Tab, 40 MG PO BID for 5 Days, #20 Ref 0 Prescribed by: STEVEN ANNE on 01/17/17 1827 Sertraline HCl 100 Mg Tablet, 100 MG PO HS, (Reported) Review of Systems Constitutional: no symptoms reported Respiratory: No Symptoms Reported Cardiovascular: No Symptoms Reported Gastrointestinal: See HPI, Abdominal Pain, Diarrhea, Nausea, Poor Appetite, Poor Fluid Intake, Vomiting Genitourinary: See HPI, Denies Burning, Flank Pain Musculoskeletal: see HPI, back pain Skin: no symptoms reported Psychiatric/Neurological: No Symptoms Reported Endocrine: No Symptoms Reported Hematologic/Lymphatic: No Symptoms Reported Past Laajxjj-Jerxuz-Bwdphx Hx Patient Social History Alcohol Use: Occasionally Uses (HISTORY OF ABUSE, NOW STATES ONLY "OCCASIONAL USE" ) Recreational Drug Use: Yes (PT DENIES EVER USING DRUGS, BUT PER OLD RECORDS, PT HAS EXTENSIVE DRUG USE, INCLUDING + IV HEROIN, AND EXTENSIVE RX NARCOTIC/RX PILLS ABUSE--MULTIPLE RX'S FROM MULTIPLE PROVIDERS IN MULTIPLE TOWNS, INCLUDING DILAUDID, FENTALYL, OXYCODONE, HYDROCODONE, XANAX, KLONOPIN, OTHERS. ) Smoking Status: Current Everyday Smoker (1/2 PPD) Type Used: Cigarettes Recent Foreign Travel: No Contact w/Someone Who Travel: No Recent Infectious Disease Expo: No Recent Hopitalizations: No Immunizations Up To Date Tetanus Booster (TDap): More than 5yrs Surgeries History of Surgeries: Yes (LEFT ACL REPAIR X 2, LEFT 5TH TOE SURGERY, MULTIPLE I&D'S OF ABSCESSES. 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 ) Blood Transfusions History of Blood Disorders: No Family Medical History Significant Family History: Heart Disease Physical Exam Vital Signs VS - Last 72 Hours, by Label 04/02/17 04/02/17 21:53 23:19 Temp 97.9 97.9 Pulse 135 135 Resp 22 22 B/P (MAP) 142/113 Pulse Ox 96 96 O2 Delivery Room Air Capillary Refill : Less Than 3 Seconds General Appearance: obese, other (DRY HEAVING , VERY DRAMATIC.) HEENT: other (POOR DENTITION, EXTENSIVE DENTAL DECAY) Neck: normal inspection Respiratory: normal breath sounds, no respiratory distress, no accessory muscle use Cardiovascular: regular rate, rhythm, no murmur Gastrointestinal: normal bowel sounds, soft, no organomegaly, no pulsatile mass , No distended, No guarding, No rebound, tenderness (RUQ), No hernia, No mass Extremities: normal inspection, other (EXTENSIVE SCARRING TO BILATERAL AC SPACES--RIGHT > LEFT--FROM IV DURG USE AND SURGICAL SCARS, ESPECIALLY TO RIGHT AC SPACE FROM STAGE 4 NECROSIS/ULCERS WITH TENDON EXPOSURE--S/P SURGICAL DEBRIDEMENT, WELL MULTIPLE LINEAR SCARS TO BILATERAL FOREARMS FROM SELF- INFLICTED WOUNDS/"CUTTING" ) Back: CVA tenderness (R) Neurologic/Psychiatric: skidder driver II-XII nml as tested, no motor/sensory deficits, alert, oriented x 3 Skin: normal color, warm/dry, No rash Laceration Repair : Suture Size: 4-0 Progress/Results/Core Measures Results/Orders Lab Results Laboratory Tests Test 04/02/17 22:30 04/02/17 22:48 Range/Units White Blood Count 8.9 4.3-11.0 10^3/uL Red Blood Count 4.95 4.35-5.85 10^6/uL Hemoglobin 15.0 13.3-17.7 G/DL Hematocrit 41 40-54 % Mean Corpuscular Volume 84 80-99 FL Mean Corpuscular Hemoglobin 30 25-34 PG Mean Corpuscular Hemoglobin Concent 36 32-36 G/DL Red Cell Distribution Width 12.1 10.0-14.5 % Platelet Count 198 130-400 10^3/uL Mean Platelet Volume 9.9 7.4-10.4 FL Neutrophils (%) (Auto) 55 42-75 % Lymphocytes (%) (Auto) 31 12-44 % Monocytes (%) (Auto) 8 0-12 % Eosinophils (%) (Auto) 5 0-10 % Basophils (%) (Auto) 1 0-10 % Neutrophils # (Auto) 4.9 1.8-7.8 X 10^3 Lymphocytes # (Auto) 2.7 1.0-4.0 X 10^3 Monocytes # (Auto) 0.7 0.0-1.0 X 10^3 Eosinophils # (Auto) 0.5 H 0.0-0.3 10^3/uL Basophils # (Auto) 0.1 0.0-0.1 10^3/uL Sodium Level 142 135-145 MMOL/L Potassium Level 3.6 3.6-5.0 MMOL/L Chloride Level 105 98-107 MMOL/L Carbon Dioxide Level 25 21-32 MMOL/L Anion Gap 12 5-14 MMOL/L Blood Urea Nitrogen 10 7-18 MG/DL Creatinine 0.85 0.60-1.30 MG/DL Estimat Glomerular Filtration Rate > 60 BUN/Creatinine Ratio 12 Glucose Level 110 H 70-105 MG/DL Calcium Level 8.6 8.5-10.1 MG/DL Total Bilirubin 0.7 0.1-1.0 MG/DL Aspartate Amino Transf (AST/SGOT) 26 5-34 U/L Alanine Aminotransferase (ALT/SGPT) 68 H 0-55 U/L Alkaline Phosphatase 73 40-136 U/L Total Protein 7.0 6.4-8.2 GM/DL Albumin 4.1 3.2-4.5 GM/DL Amylase Level 35 25-125 U/L Lipase 12 8-78 U/L Urine Color YELLOW Urine Clarity SLIGHTLY CLOUDY Urine pH 5 5-9 Urine Specific [place] 1.030 H 1.016-1.022 Urine Protein NEGATIVE NEGATIVE Urine Glucose (UA) NEGATIVE NEGATIVE Urine Ketones NEGATIVE NEGATIVE Urine Nitrite NEGATIVE NEGATIVE Urine Bilirubin NEGATIVE NEGATIVE Urine Urobilinogen 1 NORMAL MG/DL Urine Leukocyte Esterase 1+ H NEGATIVE Urine RBC (Auto) 2+ H NEGATIVE Urine RBC 0-2 /HPF Urine WBC 0-2 /HPF Urine Squamous Epithelial Cells 2-5 /HPF Urine Crystals NONE /LPF Urine Bacteria NEGATIVE /HPF Urine Casts NONE /LPF Urine Mucus LARGE H /LPF Urine Culture Indicated NO Urine Opiates Screen POSITIVE H NEGATIVE Urine Oxycodone Screen NEGATIVE NEGATIVE Urine Methadone Screen NEGATIVE NEGATIVE Urine Propoxyphene Screen NEGATIVE NEGATIVE Urine Barbiturates Screen NEGATIVE NEGATIVE Ur Tricyclic Antidepressants Screen NEGATIVE NEGATIVE Urine Phencyclidine Screen NEGATIVE NEGATIVE Urine Amphetamines Screen NEGATIVE NEGATIVE Urine Methamphetamines Screen NEGATIVE NEGATIVE Urine Benzodiazepines Screen NEGATIVE NEGATIVE Urine Cocaine Screen NEGATIVE NEGATIVE Urine Cannabinoids Screen POSITIVE H NEGATIVE My Orders Orders - RAZA BRAND DO Saline Lock/Iv-Start (04/02/17 22:03) Amylase (04/02/17 22:03) Cbc With Automated Diff (04/02/17 22:03) Comprehensive Metabolic Panel (04/02/17 22:03) Lipase (04/02/17 22:03) Saline Lock/Iv-Start (04/02/17 22:03) Lactated Ringers (Lr 1000 Ml Iv Solution (04/02/17 22:03) Ondansetron Injection (Zofran Injectio (04/02/17 22:15) Famotidine Injection (Pepcid Injection) (04/02/17 22:03) Hyoscyamine Sl Tablet (Levsin Sl Tablet) (04/02/17 22:15) Us Abdomen Complete [id number] (04/02/17 22:08) Ketorolac Injection (Toradol Injection) (04/02/17 22:30) Drug Screen Stat (Urine) (04/02/17 22:24) Urinalysis (04/02/17 22:48) Medications Given in ED Current Medications Medications Dose Ordered Sig/Debbi Route Start Time Stop Time Status Last Admin Dose Admin Hyoscyamine Sulfate 0.25 mg ONCE ONCE SL 04/02/17 22:15 04/02/17 22:16 DC 04/02/17 22:21 0.25 MG Ketorolac Tromethamine 30 mg ONCE ONCE IVP 04/02/17 22:30 04/02/17 22:31 DC 04/02/17 22:25 30 MG Lactated Ringer's 1,000 ml @ 0 mls/hr Q0M ONCE IV 04/02/17 22:03 04/02/17 22:05 DC 04/02/17 22:20 0 MLS/HR Ondansetron HCl 4 mg ONCE ONCE IVP 04/02/17 22:15 04/02/17 22:16 DC 04/02/17 22:20 4 MG Vital Signs/I&O Vital Sign - Last 12Hours 04/02/17 04/02/17 21:53 23:19 Temp 97.9 97.9 Pulse 135 135 Resp 22 22 B/P (MAP) 142/113 Pulse Ox 96 96 O2 Delivery Room Air Blood Pressure Mean: 123 Progress Note : Progress Note SYMPTOMS IMPROVED AT DISMISSAL NO VOMITING DURING ER STAY. NAUSEA RESOLVED Diagnostic Imaging Comments ULTRASOUND--NORMAL,EXCEPT FOR FATTY LIVER. PER TECH REPORT AT 2305 AT PER [facility] VIA FAX @ [phone] Reviewed: Reviewed by Me Departure Impression Impression: Primary Impression: RUQ abdominal pain Additional Impressions: POSSBLE BILIARY COLIC Illicit drug use ILLICIT DRUG USE Disposition: HOME, SELF-CARE Condition: Improved Departure-Patient Inst. Referrals: [facility] Patient Instructions: Acute Abdomen (Belly Pain), Adult (DC), POSS GALLSTONE-W/ BILIARY COLIC Add. Discharge Instructions: CLEAR LIQUIDS--WATER, BROTH, JELLO, GATORADE--FOR 24 HOURS IF YOU ARE BETTER AFTER 24 HOURS, ADD BRATS DIET TO CLEAR LIQUIDS--BANANAS, RICE , APPLESAUCE, TOAST, SALTINES CONTINUE LEVSIN AND ANTBIOTIC PRESCRIBED FOLLOW UP WITH [facility] THIS WEEK FOR FURTHER CARE All discharge instructions reviewed with patient and/or family. Voiced understanding. Scripts Ondansetron (Zofran Odt) 4 Mg Tab.rapdis 4 MG PO Q4H for Nausea/Vomiting, #10 TAB Prov: RAZA BRAND DO 04/03/17 Pantoprazole Sodium (Protonix) 40 Mg Tablet.dr 40 MG PO DAILY, #15 TAB Prov: RAZA BRAND DO 04/03/17 RAZA BRAND DO Apr 02, 2017 22:23
[2017-04-02] MEDS ORDERED: KETOROLAC 30 MG/ML VIAL IVP ONE (22:30)
[2017-04-02 23:19] VITALS: BP 142/113
[2017-04-02 23:43] LABS: ANION GAP 12 MMOL/L (5-14); BLOOD UREA NITROGEN 10 MG/DL (7-18); BUN/CREATININE RATIO 12; CALCIUM 8.6 MG/DL (8.5-10.1); CARBON DIOXIDE 25 MMOL/L (21-32); CHLORIDE 105 MMOL/L (98-107); CREATININE SERUM 0.85 MG/DL (0.60-1.30); GFR ESTIMATED > 60; GLUCOSE 110 MG/DL (70-105); POTASSIUM 3.6 MMOL/L (3.6-5.0)
[2017-04-02 23:44] LABS: ALANINE AMINOTRANSFERASE 68 U/L (0-55); ALBUMIN 4.1 GM/DL (3.2-4.5); AMYLASE 35 U/L (25-125); ASPARTATE AMINO TRANSFERASE 26 U/L (5-34); BILIRUBIN,TOTAL 0.7 MG/DL (0.1-1.0); LIPASE 12 U/L (8-78); SODIUM 142 MMOL/L (135-145)
[2017-04-02 23:45] LABS: LYMPHOCYTES % (AUTO) 31 % (12-44); MEAN CORPUSCULAR HEMOGLOBIN 30 PG (25-34); MEAN CORPUSCULAR HGB CONC 36 G/DL (32-36); MEAN CORPUSCULAR VOLUME 84 FL (80-99); MEAN PLATELET VOLUME 9.9 FL (7.4-10.4); MONOCYTES % (AUTO) 8 % (0-12); NEUTROPHILS % (AUTO) 55 % (42-75); PLATELET COUNT 198 10^3/uL (130-400); RED BLOOD COUNT 4.95 10^6/uL (4.35-5.85); RED CELL DISTRIBUTION WIDTH 12.1 % (10.0-14.5)
[2017-04-02 23:46] LABS: BASOPHILS # (AUTO) 0.1 10^3/uL (0.0-0.1); BASOPHILS % (AUTO) 1 % (0-10); EOSINOPHILS # (AUTO) 0.5 10^3/uL (0.0-0.3); EOSINOPHILS % (AUTO) 5 % (0-10); LYMPHOCYTES # (AUTO) 2.7 X 10^3 (1.0-4.0); MONOCYTES # (AUTO) 0.7 X 10^3 (0.0-1.0); NEUTROPHILS # (AUTO) 4.9 X 10^3 (1.8-7.8); WHITE BLOOD COUNT 8.9 10^3/uL (4.3-11.0)
[2017-04-02 23:48] LABS: BILIRUBIN,URINE NEGATIVE (NEGATIVE); KETONES,URINE NEGATIVE (NEGATIVE); LEUKOCYTE ESTERASE ,URINE 1+ (NEGATIVE); NITRITE,URINE NEGATIVE (NEGATIVE); PH,URINE 5 (5-9); PROTEIN,URINE NEGATIVE (NEGATIVE); UROBILINOGEN,URINE 1 MG/DL (NORMAL); WBC,URINE 0-2 /HPF
[2017-04-03] MEDS ORDERED: PANT40TA2 PO (02:42)
[2017-04-03] MEDS ORDERED: ONDA4TAB8 PO (02:42)
--- NOTE | 2017-04-03 07:00 | Diagnostic Imaging Report ---
PROCEDURE: US abdomen complete. TECHNIQUE: Multiple real-time grayscale images were obtained over the abdomen in various projections. INDICATION: Right upper quadrant abdominal pain. There is fatty infiltration of the liver. Gallbladder is clear with no stones or wall thickening. Common duct did not appear dilated. Pancreas is obscured by bowel gas. Spleen is not enlarged. Aorta and IVC are obscured by bowel gas. Right kidney measures 10.4 cm in length. Left kidney measures 10.0 cm in length. Both appear normal. There is no ascites. IMPRESSION: Hepatic steatosis. Dictated by: Dictated on workstation # [id number]
== END 2017-04-02 23:19 | disposition home or self-care (01) ==
LOC: EDUNIT# 21:46 → ER 21:47
DX: R10.11 Right upper quadrant pain (principal); F19.10 Other psychoactive substance abuse, uncomplicated; F41.9 Anxiety disorder, unspecified; F31.9 Bipolar disorder, unspecified; F17.210 Nicotine dependence, cigarettes, uncomplicated; Z90.49 Acquired absence of other specified parts of digestive tract; Z91.5 Personal history of self-harm; Z90.89 Acquired absence of other organs; Z87.19 Personal history of other diseases of the digestive system; Z86.14 Personal history of Methicillin resistant Staphylococcus aureus infection; Z82.49 Family history of ischemic heart disease and other diseases of the circulatory system
CPT/HCPCS: 36415; 76700; 80053; 80306; 81000; 82150; 83690; 85025

== ENCOUNTER 2017-06-18 16:52 | Emergency (ER) | payer SELFPAY ==
[~2017-06-18] VITALS: Ht 170.2 cm; Wt 117.9 kg
[~2017-06-18 16:52] MED LIST changes: -HYDR-3812 PO; -SERT100T PO; +SERT20OR PO
[2017-06-18] MEDS ORDERED: SERT100T8 (17:23)
--- NOTE | 2017-06-18 17:42 | ED GI ---
General Chief Complaint: Abdominal/GI Problems Stated Complaint: ABD PAIN Nursing Triage Note: ADM TO ED REPORTS WAS SENT BY [facility] BECAUSE HAD LAB WORK 2 DAYS AGO AND IS ABNORMAL. FOR FEELING LIKE HE IS HAVING MUSCLE SPASM/ABD PAIN ALL OVER ABD. Sepsis Screen: No Definite Risk Source of Information: Patient Exam Limitations: No Limitations History of Present Illness Date Seen by Provider: Jun 18, 2017 Time Seen by Provider: 17:25 Allergies and Home Medications Allergies Coded Allergies: Penicillins (Unverified Allergy, Severe, HIVES, 08/22/08) Home Medications Ciprofloxacin HCl 500 Mg Tablet, 500 MG PO BID, #20 Ref 0 Prescribed by: JANE FERREIRA on 06/18/172119 Clonazepam 1 Mg Tablet, 1 MG PO BID PRN for ANXIETY, (Reported) Metronidazole 500 Mg Tablet, 500 MG PO Q8H, #30 Ref 0 Prescribed by: JANE FERREIRA on 06/18/172119 Ondansetron 4 Mg Tab.rapdis, 4 MG PO Q4H, #10 Prescribed by: RAZA BRAND on 04/03/17 0242 Pantoprazole Sodium 40 Mg Tablet.dr, 40 MG PO DAILY, #15 Prescribed by: RAZA BRAND on 04/03/17 0242 Sertraline HCl 100 Mg Tablet, 100 MG PO HS, (Reported) Sertraline HCl 100 Mg Tablet, (Reported) Tramadol HCl 50 Mg Tablet, 50 MG PO Q6H PRN for PAIN-MODERATE TO SEVERE, #10 Ref 0 Prescribed by: JANE FERREIRA on 06/18/172119 Past Uyfpejk-Tsutcm-Xwtrmj Hx Patient Social History Alcohol Use: Denies Use Recreational Drug Use: No Smoking Status: Former Smoker Type Used: Cigarettes Former Smoker, Quit: September 26, 2016 2nd Hand Smoke Exposure: No Recent Foreign Travel: No Contact w/Someone Who Travel: No Recent Infectious Disease Expo: No Recent Hopitalizations: No Immunizations Up To Date Tetanus Booster (TDap): More than 5yrs Surgeries History of Surgeries: Yes Surgeries: Adenoidectomy, Appendectomy, Ear Surgery, Orthopedic, Tonsillectomy Respiratory History of Respiratory Disorde: No Currently Using CPAP: No Currently Using BIPAP: No Cardiovascular History of Cardiac Disorders: No Neurological History of Neurological Disord: No Reproductive System Hx Reproductive Disorders: No Genitourinary History of Genitourinary Disor: No Gastrointestinal History of Gastrointestinal Di: Yes Gastrointestinal Disorders: Chronic Constipation, Chronic Diarrhea Musculoskeletal 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 ) Endocrine History of Endocrine Disorders: No HEENT History of HEENT Disorders: No Loss of Vision: Denies Hearing Impairment: Denies Cancer History of Cancer: No Psychosocial History of Psychiatric Problem: Yes (SUICIDAL THOUGHTS/GESTURES IN PAST-- "CUTTER") Behavioral Health Disorders: Anxiety, Suicide Attempts, Bipolar, Depression Integumentary History of Skin or Integumenta: Yes Blood Transfusions History of Blood Disorders: No Family Medical History Significant Family History: Heart Disease Physical Exam Vital Signs VS - Last 72 Hours, by Label 06/18/17 17:07 Temp 96.9 Pulse 89 Resp 18 B/P (MAP) 134/92 (106) Pulse Ox 98 O2 Delivery Room Air Capillary Refill : Less Than 3 Seconds Focused Exam Evaluation Lactate Level Laboratory Tests 06/18/17 19:26: Lactic Acid Level 1.02 Lactic Acid Level Laboratory Tests Test 06/18/17 19:26 Lactic Acid Level 1.02 MMOL/L (0.50-2.00) Laceration Repair : Suture Size: 4-0 Progress/Results/Core Measures Results/Orders Lab Results Laboratory Tests Test 06/18/17 18:00 06/18/17 19:26 06/18/17 19:33 Range/Units White Blood Count 13.9 H 4.3-11.0 10^3/uL Red Blood Count 5.49 4.35-5.85 10^6/uL Hemoglobin 16.6 13.3-17.7 G/DL Hematocrit 46 40-54 % Mean Corpuscular Volume 83 80-99 FL Mean Corpuscular Hemoglobin 30 25-34 PG Mean Corpuscular Hemoglobin Concent 36 32-36 G/DL Red Cell Distribution Width 12.2 10.0-14.5 % Platelet Count 257 130-400 10^3/uL Mean Platelet Volume 9.5 7.4-10.4 FL Neutrophils (%) (Auto) 76 H 42-75 % Lymphocytes (%) (Auto) 15 12-44 % Monocytes (%) (Auto) 7 0-12 % Eosinophils (%) (Auto) 1 0-10 % Basophils (%) (Auto) 0 0-10 % Neutrophils # (Auto) 10.6 H 1.8-7.8 X 10^3 Lymphocytes # (Auto) 2.1 1.0-4.0 X 10^3 Monocytes # (Auto) 1.0 0.0-1.0 X 10^3 Eosinophils # (Auto) 0.2 0.0-0.3 10^3/uL Basophils # (Auto) 0.0 0.0-0.1 10^3/uL Prothrombin Time 12.7 12.2-14.7 SEC INR Comment 0.9 0.8-1.4 Activated Partial Thromboplast Time 25 24-35 SEC Sodium Level 139 135-145 MMOL/L Potassium Level 4.0 3.6-5.0 MMOL/L Chloride Level 103 98-107 MMOL/L Carbon Dioxide Level 23 21-32 MMOL/L Anion Gap 13 5-14 MMOL/L Blood Urea Nitrogen 14 7-18 MG/DL Creatinine 0.84 0.60-1.30 MG/DL Estimat Glomerular Filtration Rate > 60 BUN/Creatinine Ratio 17 Glucose Level 96 70-105 MG/DL Calcium Level 9.8 8.5-10.1 MG/DL Total Bilirubin 1.3 H 0.1-1.0 MG/DL Aspartate Amino Transf (AST/SGOT) 31 5-34 U/L Alanine Aminotransferase (ALT/SGPT) 70 H 0-55 U/L Alkaline Phosphatase 62 40-136 U/L C-Reactive Protein High Sensitivity 0.30 0.00-0.50 MG/DL Total Protein 7.9 6.4-8.2 GM/DL Albumin 4.8 H 3.2-4.5 GM/DL Lipase 33 8-78 U/L TSH [place] Testing 1.68 0.35-4.94 UIU/ML Lactic Acid Level 1.02 0.50-2.00 MMOL/L Urine Color YELLOW Urine Clarity CLEAR Urine pH 5 5-9 Urine Specific [place] 1.010 L 1.016-1.022 Urine Protein NEGATIVE NEGATIVE Urine Glucose (UA) NEGATIVE NEGATIVE Urine Ketones NEGATIVE NEGATIVE Urine Nitrite NEGATIVE NEGATIVE Urine Bilirubin NEGATIVE NEGATIVE Urine Urobilinogen NORMAL NORMAL MG/DL Urine Leukocyte Esterase NEGATIVE NEGATIVE Urine RBC (Auto) NEGATIVE NEGATIVE Urine RBC NONE /HPF Urine WBC NONE /HPF Urine Squamous Epithelial Cells 0-2 /HPF Urine Crystals NONE /LPF Urine Bacteria NONE /HPF Urine Casts NONE /LPF Urine Mucus NEGATIVE /LPF Urine Culture Indicated NO Urine Opiates Screen NEGATIVE NEGATIVE Urine Oxycodone Screen NEGATIVE NEGATIVE Urine Methadone Screen NEGATIVE NEGATIVE Urine Propoxyphene Screen NEGATIVE NEGATIVE Urine Barbiturates Screen NEGATIVE NEGATIVE Ur Tricyclic Antidepressants Screen NEGATIVE NEGATIVE Urine Phencyclidine Screen NEGATIVE NEGATIVE Urine Amphetamines Screen NEGATIVE NEGATIVE Urine Methamphetamines Screen NEGATIVE NEGATIVE Urine Benzodiazepines Screen NEGATIVE NEGATIVE Urine Cocaine Screen NEGATIVE NEGATIVE Urine Cannabinoids Screen NEGATIVE NEGATIVE My Orders Orders - JANE FERREIRA Cbc With Automated Diff (06/18/17 17:43) Comprehensive Metabolic Panel (06/18/17 17:43) Drug Screen Stat (Urine) (06/18/17 17:43) Lipase (06/18/17 17:43) Ua Culture If Indicated (06/18/17 17:43) Hs C Reactive Protein (06/18/17 18:32) [place] Level (06/18/17 18:34) Lactic Acid Analyzer (06/18/17 18:43) Blood Culture (06/18/17 18:43) Protime With Inr (06/18/17 18:43) Partial Thromboplastin Time (06/18/17 18:43) Chest 1 View, Ap/Pa Only (06/18/17 18:43) Ondansetron Injection (Zofran Injectio (06/18/17 18:45) Acetaminophen Tablet (Tylenol Tablet) (06/18/17 18:45) Ekg Tracing (06/18/17 18:43) Remove Rings In Anticipation O (06/18/17 18:43) Influenza A And B Antigens (06/18/17 18:43) Thyroid Analyzer (06/18/17 18:43) Ct Abdomen/Pelvis W (06/18/17 18:43) Ns Iv 1000 Ml (Sodium Chloride 0.9%) (06/18/17 18:45) Ketorolac Injection (Toradol Injection) (06/18/17 18:45) Iohexol Injection (Omnipaque 350 Mg/Ml 1 (06/18/17 19:00) Ns (Ivpb) (Sodium Chloride 0.9% Ivpb Bag (06/18/17 19:00) Iohexol Injection (Omnipaque 350 Mg/Ml 1 (06/18/17 20:00) Ns (Ivpb) (Sodium Chloride 0.9% Ivpb Bag (06/18/17 20:00) Levofloxacin Tablet (Levaquin Tablet) (06/18/17 21:00) Metronidazole Tablet (Flagyl Tablet) (06/18/17 21:00) Medications Given in ED Current Medications Medications Dose Ordered Sig/Debbi Route Start Time Stop Time Status Last Admin Dose Admin Acetaminophen 1,000 mg ONCE PRN PO 06/18/17 18:45 06/18/17 19:32 DC 06/18/17 19:24 1,000 MG Iohexol 100 ml ONCE ONCE IV 06/18/17 20:00 06/18/17 20:01 DC 06/18/17 19:59 100 ML Ondansetron HCl 4 mg ONCE PRN IVP 06/18/17 18:45 06/18/17 19:40 DC 06/18/17 19:39 4 MG Sodium Chloride 80 ml ONCE ONCE IV 06/18/17 20:00 06/18/17 20:01 DC 06/18/17 19:59 80 ML Sodium Chloride 1,000 ml @ 0 mls/hr Q0M ONCE IV 06/18/17 18:45 06/18/17 18:46 DC 06/18/17 19:39 1,000 MLS/HR Vital Signs/I&O Vital Sign - Last 12Hours 06/18/17 17:07 Temp 96.9 Pulse 89 Resp 18 B/P (MAP) 134/92 (106) Pulse Ox 98 O2 Delivery Room Air Blood Pressure Mean: 106 Departure Impression Impression: Primary Impression: Colitis, acute Additional Impression: Gastritis Disposition: 01 HOME, SELF-CARE Condition: Improved Departure-Patient Inst. Decision time for Depature: 21:18 Referrals: ANIYAH OROZCO MD (PCP/Family) Primary Care Physician GERRY RIVERA MD Patient Instructions: Microscopic Colitis Add. Discharge Instructions: All discharge instructions reviewed with patient and/or family. Voiced understanding. Medications as instructed. Tylenol just strength over-the- counter as directed for pain. Ibuprofen 800 mg by mouth every 8 hours as needed for pain. Clear liquid diet until abdominal pain improves, then increase diet slowly to a low residue diet. Follow-up with [facility] tomorrow or Friday for recheck, call tomorrow morning for appointment time. You may need to follow-up with Dr. Rivera or the general surgeon of your choice for possible need of colonoscopy and upper endoscopy. Return to the emergency department for worsened symptoms or any other concerns. Scripts Tramadol HCl (Tramadol HCl) 50 Mg Tablet 50 MG PO Q6H Y for PAIN-MODERATE TO SEVERE, #10 TAB 0 Refills Prov: JANE FERREIRA 06/18/17 Ciprofloxacin HCl (Ciprofloxacin HCl) 500 Mg Tablet 500 MG PO BID, #20 TAB 0 Refills Prov: JANE FERREIRA 06/18/17 Metronidazole (Metronidazole) 500 Mg Tablet 500 MG PO Q8H, #30 TAB 0 Refills Prov: JANE FERREIRA 06/18/17 JANE FERREIRA Jun 18, 2017 17:42
[2017-06-18 18:16] LABS: BASOPHILS % (AUTO) 0 % (0-10); EOSINOPHILS # (AUTO) 0.2 10^3/uL (0.0-0.3); EOSINOPHILS % (AUTO) 1 % (0-10); HEMATOCRIT 46 % (40-54); HEMOGLOBIN 16.6 G/DL (13.3-17.7); LYMPHOCYTES # (AUTO) 2.1 X 10^3 (1.0-4.0); LYMPHOCYTES % (AUTO) 15 % (12-44); MEAN CORPUSCULAR HEMOGLOBIN 30 PG (25-34); MEAN CORPUSCULAR HGB CONC 36 G/DL (32-36); MEAN CORPUSCULAR VOLUME 83 FL (80-99); MEAN PLATELET VOLUME 9.5 FL (7.4-10.4); MONOCYTES % (AUTO) 7 % (0-12); NEUTROPHILS # (AUTO) 10.6 X 10^3 (1.8-7.8); NEUTROPHILS % (AUTO) 76 % (42-75); PLATELET COUNT 257 10^3/uL (130-400); RED BLOOD COUNT 5.49 10^6/uL (4.35-5.85); RED CELL DISTRIBUTION WIDTH 12.2 % (10.0-14.5); WHITE BLOOD COUNT 13.9 10^3/uL (4.3-11.0)
[2017-06-18 18:33] LABS: ALANINE AMINOTRANSFERASE 70 U/L (0-55); ALBUMIN 4.8 GM/DL (3.2-4.5); ALKALINE PHOSPHATASE 62 U/L (40-136); BILIRUBIN,TOTAL 1.3 MG/DL (0.1-1.0); BUN/CREATININE RATIO 17; CALCIUM 9.8 MG/DL (8.5-10.1); CARBON DIOXIDE 23 MMOL/L (21-32); CHLORIDE 103 MMOL/L (98-107); CREATININE SERUM 0.84 MG/DL (0.60-1.30); GFR ESTIMATED > 60; GLUCOSE 96 MG/DL (70-105); LIPASE 33 U/L (8-78); SODIUM 139 MMOL/L (135-145); TOTAL PROTEIN 7.9 GM/DL (6.4-8.2)
[2017-06-18] MEDS ORDERED: ACETAMINOPHEN 500 MG TAB (TYLENOL) PO PRN (18:45)
[2017-06-18] MEDS ORDERED: NS IV 1000 ML 1,000 ML IV ONE (18:45)
[2017-06-18] MEDS ORDERED: KETOROLAC 30 MG/ML VIAL IVP STA (18:45)
[2017-06-18] MEDS ORDERED: ONDANSETRON 4 MG/2 ML (SDV) Z0FRAN IVP PRN (18:45)
[2017-06-18 18:54] LABS: INR 0.9 (0.8-1.4); PROTHROMBIN TIME PATIENT 12.7 SEC (12.2-14.7)
[2017-06-18] MEDS ORDERED: NS 100 ML (IVPB) BAG IV ONE ×2 (19:00→20:00)
[2017-06-18] MEDS ORDERED: IOHEXOL 350 MG/ML 100 ML (OMNIPAQUE 350) VIAL IV ONE ×2 (19:00→20:00)
[2017-06-18 19:42] LABS: BILIRUBIN,URINE NEGATIVE (NEGATIVE); CLARITY,URINE CLEAR; COLOR,URINE YELLOW; GLUCOSE, URINE (UA) NEGATIVE (NEGATIVE); KETONES,URINE NEGATIVE (NEGATIVE); LEUKOCYTE ESTERASE ,URINE NEGATIVE (NEGATIVE); NITRITE,URINE NEGATIVE (NEGATIVE); PH,URINE 5 (5-9); PROTEIN,URINE NEGATIVE (NEGATIVE); UROBILINOGEN,URINE NORMAL (NORMAL)
[2017-06-18 19:50] LABS: SQUAMOUS EPITHELIAL CELL,UR 0-2 /HPF
--- NOTE | 2017-06-18 20:09 | Diagnostic Imaging Report ---
PROCEDURE: CT abdomen and pelvis with contrast. TECHNIQUE: Multiple contiguous axial images were obtained through the abdomen and pelvis after administration of intravenous contrast. INDICATION: Right-sided abdominal pain. Nausea. Blood in the stools. There are fatty infiltrates of the liver. The gallbladder and bile ducts are normal. The spleen, pancreas and adrenals are normal. The kidneys, ureters and bladder are normal. There is diffuse contraction/spasm of the colon. There is some mucosal edema. No pericolonic inflammation is seen. The small bowel is normal. There is no free intraperitoneal air or fluid. IMPRESSION: There is some mucosal edema and there is diffuse spasm of the colon which may be secondary to a colitis. There are fatty changes in the liver. No other abnormality is seen. Dictated by: Dictated on workstation # [id number]
[2017-06-18 20:11] LABS: AMPHETAMINE SCREEN, URINE NEGATIVE (NEGATIVE); BARBITURATE SCREEN URINE NEGATIVE (NEGATIVE); BENZODIAZEPINES SCREEN URINE NEGATIVE (NEGATIVE); CANNABINOID SCREEN, URINE NEGATIVE (NEGATIVE); COCAINE SCREEN URINE NEGATIVE (NEGATIVE); METHADONE STAT NEGATIVE (NEGATIVE); METHAMPHETAMINE SCREEN URINE S NEGATIVE (NEGATIVE); OPIATE SCREEN URINE NEGATIVE (NEGATIVE); OXYCODONE STAT NEGATIVE (NEGATIVE); PROPOXYPHENE STAT NEGATIVE (NEGATIVE); TRICYCLIC ANTIDEPRESSANTS SCRE NEGATIVE (NEGATIVE)
--- NOTE | 2017-06-18 20:17 | Diagnostic Imaging Report ---
INDICATION: Abdominal pain A single view of the chest shows normal heart size and vascularity. The lungs are clear. There is no effusion or pneumothorax. There is no bony abnormality. IMPRESSION: Normal chest. There is no change from 06/01/2014. Dictated by: Dictated on workstation # [id number]
[2017-06-18] MEDS ORDERED: metroNIDAZOLE 500 MG (FLAGYL) TAB PO ONE (21:00)
[2017-06-18] MEDS ORDERED: LEVOFLOXACIN 500 MG TAB (LEVAQUIN) PO ONE (21:00)
[2017-06-18] MEDS ORDERED: METR500T21 PO (21:20)
[2017-06-18] MEDS ORDERED: CIPR500T4 PO (21:20)
[2017-06-18] MEDS ORDERED: TRAM50TA2 PO (21:20)
[2017-06-18] MEDS ORDERED: RX-TRAMADOL 50 MG (ULTRAM) TAB PPK#4 PO STA (21:26)
[2017-06-18 21:42] VITALS: BP 149/99
== END 2017-06-18 21:42 | disposition home or self-care (01) ==
LOC: EDUNIT# 16:52 → ER 16:53
DX: K52.9 Noninfective gastroenteritis and colitis, unspecified (principal); K29.70 Gastritis, unspecified, without bleeding; F41.9 Anxiety disorder, unspecified; F31.9 Bipolar disorder, unspecified; Z91.5 Personal history of self-harm; Z82.49 Family history of ischemic heart disease and other diseases of the circulatory system; Z87.19 Personal history of other diseases of the digestive system; Z88.0 Allergy status to penicillin; Z87.891 Personal history of nicotine dependence; Z90.49 Acquired absence of other specified parts of digestive tract; Z90.89 Acquired absence of other organs
CPT/HCPCS: 36415; 71045; 74177; 80053; 80178; 80306; 81000; 83605; 83690; 84443; 85025; 85610; 85730; 86141; 87040; 93005; 96361; 96374; 96375

== ENCOUNTER → 2017-06-25 | Outpatient (CLI) | payer SELFPAY ==
[~2017-06-25] MED LIST changes: +CIPR500T4 PO; +METR500T21 PO; +OXCA150T PO; +PROP10TA8 PO; +QUET100T PO; +SERT100T8
--- NOTE | 2017-06-25 08:38 | Diagnostic Imaging Report ---
INDICATION: Elevated liver function tests. The liver is enlarged at approximately 19 cm. There is diffuse increased echogenicity throughout the liver consistent with hepatic steatosis. No discrete liver mass is identified. The gallbladder appears contracted. No gallstones are seen. There is no wall thickening or biliary ductal dilatation. The pancreas was poorly visualized and obscured by bowel gas. Right kidney is unremarkable. There is no ascites. IMPRESSION: 1. Hepatomegaly and hepatic steatosis. 2. No evidence of cholelithiasis or acute cholecystitis. Dictated by: Dictated on workstation # [id number]
== END ==
LOC: RAD 06:34
PROVIDERS: ATTEND Family Medicine
DX: K76.0 Fatty (change of) liver, not elsewhere classified (principal)
CPT/HCPCS: 76705

== ENCOUNTER 2017-06-26 08:58 | Outpatient (CLI) | payer SELFPAY ==
[~2017-06-26] VITALS: Ht 170.2 cm; Wt 117.9 kg
[~2017-06-26 08:58] MED LIST changes: +NAPR-915 PO; -NAPR500T4 PO; -OXCA150T PO; -PROP10TA8 PO; -QUET100T PO; +SERT100T PO; -SERT20OR PO
[2017-06-26] MEDS ORDERED: OXCA150T PO (14:26)
[2017-06-26] MEDS ORDERED: PROP10TA8 PO (14:26)
[2017-06-26] MEDS ORDERED: QUET100T PO (14:26)
== END 2017-06-26 14:32 ==
LOC: PREOP 08:58
PROVIDERS: ATTEND Surgery
DX: Z01.818 Encounter for other preprocedural examination (principal); K92.1 Melena; R10.13 Epigastric pain

== ENCOUNTER 2017-07-01 07:47 | Day surgery (SDC) | payer SELFPAY ==
[~2017-07-01] VITALS: Ht 170.2 cm; Wt 117.9 kg
[~2017-07-01 07:47] MED LIST changes: +OXCA150T PO; +PROP10TA8 PO; +QUET100T PO
[2017-07-01] MEDS ORDERED: LACTATED RINGERS 1,000 ML IV ONE (08:04)
--- NOTE | 2017-07-01 08:09 | Progress Note-Pre Operative ---
Pre-Operative Progress Note H&P Reviewed The H&P was reviewed, patient examined and no changes noted. Date Seen by Provider: Jul 01, 2017 Time Seen by Provider: 08:09 Date H&P Reviewed: Jul 01, 2017 Time H&P Reviewed: 08:09 Pre-Operative Diagnosis: melena, epigastric abdominal pain ELIZABETH KEMP DO Jul 01, 2017 08:09
[2017-07-01] MEDS ORDERED: LACTATED RINGERS 1,000 ML IV STA (08:19)
[2017-07-01 08:21] VITALS: BP 138/92
[2017-07-01] MEDS ORDERED: HURRICAINE EXT TUBE (BENZOCAINE) XX PRN (08:30)
[2017-07-01] MEDS ORDERED: proPOfol 200 MG/20 ML (DIPRIVAN) VIAL IV ONE ×2 (09:32→09:33)
[2017-07-01] MEDS ORDERED: MIDAZOLAM 5 MG/5 ML (VERSED) VIAL ONE (09:33)
[2017-07-01] MEDS ORDERED: HURRICAINE EXT TUBE (BENZOCAINE) ONE (10:07)
[2017-07-01] MEDS ORDERED: PROPOFOL INJECTION 50 ML IV ONE (10:35)
[2017-07-01 11:05] VITALS: BP 139/99
--- NOTE | 2017-07-01 11:30 | Progress Note-Post Operative ---
Post-Operative Progess Note Surgeon (s)/Boiler Blower (s) Surgeon ELIZABETH KEMP DO Boiler Blower: na Pre-Operative Diagnosis melena, epigastric abdominal pain Post-Operative Diagnosis slight reactive gastropathy, reflux esophagitis, sigmoid small healing ulcer Procedure & Operative Findings Date of Procedure 07/01/17 Procedure Performed/Findings egd c biopsies and colonoscopy with cold biopsy sigmoid healing ulcer Anesthesia Type per fig bar machine operator Estimated Blood Loss Estimated blood loss (mL): minimal Specimens/Packing Specimens Removed antrum, ge, sigmoid ELIZABETH KEMP DO Jul 01, 2017 11:30
[2017-07-01] MEDS ORDERED: PANT40TA2 PO (11:31)
--- NOTE | 2017-07-01 11:32 | Discharge Inst-Simple/Standard ---
Discharge Inst-Standard Discharge Medications New, Converted or Re-Newed RX: Transmitted to Pharmacy Patient Instructions/Follow Up Plan of Care/Instructions/FU: 2 weeks Ashly Activity as Tolerated: Yes Discharge Diet: Regular Diet ELIZABETH KEMP DO Jul 01, 2017 11:32
[2017-07-01 11:40] VITALS: BP 147/98
[2017-07-01 11:53] VITALS: BP 147/98
--- NOTE | 2017-07-01 12:29 | Anesthesia-General Post-Op ---
MAC Patient Condition Mental Status/LOC: Same as Preop Cardiovascular: Satisfactory Nausea/Vomiting: Absent Respiratory: Satisfactory Pain: Controlled Complications: Absent Post Op Complications Complications None Follow Up Care/Instructions Patient Instructions None needed. Anesthesiology Discharge Order Discharge Order Patient is doing well, no complaints, stable vital signs, no apparent adverse anesthesia problems. No complications reported per nursing. DEANGELO FISHER CRNA Jul 01, 2017 12:29
--- NOTE | 2017-07-01 17:03 | OPERATIVE REPORT ---
DATE OF SERVICE: 07/01/2017 PREOPERATIVE DIAGNOSES: Melena, epigastric abdominal pain. POSTOPERATIVE DIAGNOSES: Slight reactive gastropathy, reflux esophagitis, sigmoid colon small healing ulcer. PROCEDURE: EGD with biopsies and colonoscopy with cold biopsy of sigmoid healing ulcer. SURGEON: Elizabeth Limon DO ANESTHESIA: Per HOSIERY MATER. ESTIMATED BLOOD LOSS: Minimal. COMPLICATIONS: None. INDICATIONS: The patient is a 31-year-old male who has been having epigastric abdominal pain and having some blood per stools. He was explained risks and benefits of having EGD and colonoscopy performed. He understands risks and benefits and wished to proceed with the procedure. Consent was signed and on the chart. DESCRIPTION OF PROCEDURE: The patient was taken to the endoscopy suite, placed in left lateral recumbent position. Timeout was performed. Scope was inserted in the mouth, down the esophagus, stomach and into the duodenum without difficulty. There were no polyps, masses or ulcerations within the duodenum. The scope was then slowly retracted back into the stomach where it was further insufflated. The antrum had some slight reactive gastropathy appearing mucosa. The biopsy was obtained. Scope was also retroflexed noting no other pathology. Scope was returned to its normal position, slowly withdrawn back into the distal esophagus which had slight appearance with some reflux esophagitis. Scope was slowly retracted back until completely removed noting no other pathology. Biopsy of the GE junction was performed before removing the scope. Digital rectal exam was performed. There were no palpable polyps, masses or ulcerations. Scope was inserted in the rectum and advanced all the way to the cecum. The prep was adequate with irrigation and suction. There was still a lot of liquid stool present. There were no polyps, masses or ulcerations within the cecum, ascending, transverse and descending colon. In the sigmoid colon, there were two small spots that were erythematous that looked like healing ulcers. A cold biopsy was performed. Scope was continued to be slowly retracted back into the rectum where it was also retroflexed noting no other pathology. Scope was returned to its normal position, slowly withdrawn until completely removed. The patient tolerated the procedure well without any complications and taken to recovery room in stable condition. RECOMMENDATIONS: The patient will follow up on biopsies in 2 weeks. We will also start him on Protonix 40 mg daily to see if any improvement of his symptoms. The patient will need repeat colonoscopy per routine guidelines, unless he has return of blood in stools which I would recommend repeat colonoscopy at that time if that would occur or other symptoms that would warrant it. Job ID: [id number] DocumentID: [id number] Dictated Date: 07/01/2017 11:36:24 Administrative Personal Assistant Date: 07/01/2017 16:09:41 Dictated By: ELIZABETH LIMON DO
== END 2017-07-01 11:50 | disposition home or self-care (01) ==
LOC: ENDO 07:47
PROVIDERS: ATTEND Surgery
DX: K31.9 Disease of stomach and duodenum, unspecified (principal); K21.0 Gastro-esophageal reflux disease with esophagitis; K63.3 Ulcer of intestine; F17.210 Nicotine dependence, cigarettes, uncomplicated; E66.9 Obesity, unspecified; Z79.899 Other long term (current) drug therapy; Z88.0 Allergy status to penicillin; Z88.1 Allergy status to other antibiotic agents